=== PATIENT | female | born 1995 | race Two or more races ===

== ENCOUNTER 2020-09-06 08:54 | Emergency (ER) | payer OTHER ==
[~2020-09-06] VITALS: Ht 154.9 cm; Wt 77.1 kg
[2020-09-06 09:10] VITALS: BP 116/71
== END 2020-09-06 10:06 | disposition home or self-care (01) ==
LOC: ER 08:54
DX: J06.9 Acute upper respiratory infection, unspecified (principal); F41.9 Anxiety disorder, unspecified
CPT/HCPCS: 71045